=== PATIENT | male | born 1965 | race African-American/Black ===

== ENCOUNTER 2016-12-05 12:58 | Emergency (ER) | payer SELFPAY ==
[~2016-12-05] VITALS: Ht 180.3 cm; Wt 100.0 kg
[2016-12-05 12:59] VITALS: BP 144/82
[2016-12-05] MEDS ORDERED: LORAZEPAM 1MG TABLET PO ONE (13:30)
== END 2016-12-05 13:55 | disposition left against medical advice (07) ==
LOC: ER 13:06
DX: R44.0 Auditory hallucinations (principal)
CPT/HCPCS: 99283

== ENCOUNTER 2016-12-22 15:46 | Emergency (ER) | payer SELFPAY ==
[~2016-12-22] VITALS: Ht 167.6 cm; Wt 81.0 kg
[2016-12-22 18:50] VITALS: BP 131/74
== END 2016-12-22 19:00 | disposition home or self-care (01) ==
LOC: ER 16:41
DX: F31.9 Bipolar disorder, unspecified (principal)
CPT/HCPCS: 99283

== ENCOUNTER 2016-12-29 10:51 | Emergency (ER) | payer SELFPAY | END 2016-12-29 11:47 | disposition left against medical advice (07) | LOC: ER 10:52 | DX: Z53.21 Procedure and treatment not carried out due to patient leaving prior to being seen by health care provider (principal) ==

== ENCOUNTER 2019-05-03 16:00 | Emergency (ER) | payer MEDICAID | END 2019-05-03 17:10 | disposition left against medical advice (07) | LOC: ER 16:00 | DX: R68.89 Other general symptoms and signs (principal); Z53.21 Procedure and treatment not carried out due to patient leaving prior to being seen by health care provider ==

== ENCOUNTER 2023-03-20 02:22 | Emergency (ER) | payer MEDICAID, OTHER ==
[~2023-03-20] VITALS: Ht 182.9 cm; Wt 100.0 kg
[2023-03-20 02:25] VITALS: O2SAT 96
[2023-03-20] MEDS ORDERED: ZIPRASIDONE MESYLATE 20MG/VIAL IM ONE (02:45)
[2023-03-20 05:13] LABS: HEMATOCRIT. 40.1 % (42.0-52.0); HEMOGLOBIN. 13.1 g/dL (14.0-18.0); MEAN CORPUSCULAR HEMOGLOBIN 28.5 pg (28.0-32.0); MEAN CORPUSCULAR HGB CONC 32.5 g/dL (31.0-37.0); MEAN CORPUSCULAR VOLUME 87.6 fL (80.0-94.0); MEAN PLATELET VOLUME 8.5 fl (7.4-10.4); PLATELET 158 x1000/uL (130-400); RED BLOOD CELL COUNT 4.58 mill/uL (4.7-6.1); RED CELL DISTRIBUTION WIDTH 14.1 % (11.6-14.6); WHITE BLOOD COUNT 6.4 x1000/uL (4.5-11.0)
[2023-03-20 05:22] LABS: CHLORIDE 108 mEq/L (98-107); DIFFERENTIAL COMMENT 1; INDEX HEMOLYSI 1 (1-3); INDEX ICTERIC 1 (1-4); INDEX LIPEMIC 1 (1-3); POTASSIUM 3.8 mEq/L (3.5-5.1); SODIUM 139 mEq/L (136-145)
[2023-03-20 05:29] LABS: ACETAMINOPHEN <2 ug/mL ug/mL (10-30); ALANINE AMINOTRANSFERASE 65 IU/L (13-61); ALBUMIN 3.4 g/dL (3.4-5.0); ASPARTATE AMINOTRANSFERASE 90 IU/L (15-37); BILIRUBIN TOTAL 0.9 mg/dL (0.1-1.0); CALCIUM 8.6 mg/dL (8.5-10.1); CARBON DIOXIDE 28 mEq/L (21-32); CREATININE 1.4 mg/dL (0.6-1.3); ETHANOL BLOOD < 10 mg/dL (-10); GLUCOSE 94 mg/dL (70-105); PROTEIN TOTAL 7.3 g/dL (6.0-8.3); UREA NITROGEN BLOOD 23 mg/dL (7-21)
[2023-03-20 09:36] VITALS: BP 123/70; PULSE 85; RESP 16; TEMP 98.2
[2023-03-20 11:23] LABS: PLATELET ESTIMATE NORMAL
== END 2023-03-20 10:05 | disposition home or self-care (01) ==
LOC: ER 02:22
DX: R45.1 Restlessness and agitation (principal); F31.9 Bipolar disorder, unspecified; F20.9 Schizophrenia, unspecified
CPT/HCPCS: 80053; 80307; 80329; 80320; 85025; 36415; 96372; 99285; J3486; Z7610; G0480

== ENCOUNTER 2023-03-21 01:48 | Emergency (ER) | payer OTHER ==
[~2023-03-21] VITALS: Ht 177.8 cm; Wt 87.0 kg
[2023-03-21 01:53] VITALS: BP 120/86; PULSE 106; RESP 18; O2SAT 96
== END 2023-03-21 05:56 | disposition left against medical advice (07) ==
LOC: ER 01:48
DX: Z53.21 Procedure and treatment not carried out due to patient leaving prior to being seen by health care provider (principal)
CPT/HCPCS: 99281

== ENCOUNTER 2024-07-09 14:25 | Emergency (ER) | payer OTHER ==
[~2024-07-09] VITALS: Ht 182.9 cm; Wt 68.0 kg
[~2024-07-09 14:25] MED LIST: IBUP-2028 MT
[2024-07-09 14:28] VITALS: O2SAT 96
[2024-07-09 15:46] LABS: BASOPHILS % 0.1 % (0.0-2.0); EOSINOPHILS % 0.1 % (0.0-5.0); HEMATOCRIT. 27.6 % (42.0-52.0); LYMPHOCYTES % 9.8 % (20.0-50.0); MEAN CORPUSCULAR HEMOGLOBIN 27.2 pg (28.0-32.0); MEAN CORPUSCULAR HGB CONC 32.6 g/dL (31.0-37.0); MEAN CORPUSCULAR VOLUME 83.5 fL (80.0-94.0); MEAN PLATELET VOLUME 7.6 fl (7.4-10.4); MONOCYTES % 14.6 % (2.0-8.0); NEUTROPHILS % 75.4 % (40.0-76.0); PLATELET 277 x1000/uL (130-400); RED BLOOD CELL COUNT 3.31 mill/uL (4.7-6.1); RED CELL DISTRIBUTION WIDTH 13.8 % (11.6-14.6); WHITE BLOOD COUNT 7.1 x1000/uL (4.5-11.0)
[2024-07-09] MEDS: SODIUM CHLORIDE 0.9% (SEPSIS BOLUS) IV ONE (15:46)
[2024-07-09] MEDS: PIPERACILLIN/TAZO 3.375G/50ML 50 ML IV ONE (15:47)
[2024-07-09] MEDS: ACETAMINOPHEN 325MG TABLET PO STA (15:47)
[2024-07-09 15:56] LABS: CHLORIDE 98 mEq/L (98-107); POTASSIUM 4.4 mEq/L (3.5-5.1)
[2024-07-09 15:57] LABS: CARBON DIOXIDE 25 mEq/L (21-32); SODIUM 130 mEq/L (136-145)
[2024-07-09 15:58] LABS: CALCIUM 8.9 mg/dL (8.7-10.4)
[2024-07-09 16:02] LABS: CREATININE 1.1 mg/dL (0.6-1.3)
[2024-07-09 16:03] LABS: GLUCOSE 100 mg/dL (70-105); UREA NITROGEN BLOOD 14 mg/dL (9-23)
[2024-07-09 16:04] LABS: ALANINE AMINOTRANSFERASE 66 IU/L (10-49); ALBUMIN 3.7 g/dL (3.2-4.8); ASPARTATE AMINOTRANSFERASE 73 IU/L (<34); CREATINE KINASE 61 IU/L (46-171)
[2024-07-09 16:05] LABS: BILIRUBIN DIRECT 0.2 mg/dL (<=3.0); BILIRUBIN TOTAL 0.5 mg/dL (0.1-1.0); PROTEIN TOTAL 7.1 g/dL (6.0-8.3)
[2024-07-09 16:07] LABS: ETHANOL BLOOD < 10 mg/dL (<10); TROPONIN I HIGH SENSITIVITY < 4 ng/L (3.0-53)
[2024-07-09] MEDS: IBUPROFEN 800MG TABLET PO ONE (16:21)
[2024-07-09 16:45] VITALS: TEMP 38.78088
[2024-07-09 16:47] VITALS: TEMP 102.1
[2024-07-09 17:08] LABS: CLARITY URINE CLEAR (CLEAR); COLOR URINE YELLOW (YELLOW); GLUCOSE URINE NEGATIVE (NEGATIVE); KETONES URINE NEGATIVE (NEGATIVE); LEUKOCYTE ESTERASE URINE NEGATIVE (NEGATIVE); NITRITE URINE NEGATIVE (NEGATIVE); OCCULT BLOOD URINE NEGATIVE (NEGATIVE); PROTEIN URINE 1+ (NEGATIVE); SPECIFIC GRAVITY URINE 1.015 (1.005-1.030)
[2024-07-09 17:29] LABS: BACTERIA URINE 1+; RBC URINE NONE SEEN /hpf (0-2); SQUAMOUS EPITHELIAL CELL URINE RARE /lpf (RARE/1+); WBC URINE 0-2 /hpf (0-2)
[2024-07-09 21:02] LABS: TROPONIN I HIGH SENSITIVITY < 4 ng/L (3.0-53)
[2024-07-09 21:30] VITALS: BP 105/68; PULSE 91; RESP 18; O2SAT 100
[2024-07-13] MEDS ORDERED: NAPR-1176 MT (03:22)
== END 2024-07-09 21:32 | disposition left against medical advice (07) ==
LOC: ER 14:25 → EDBEDREQTM 16:23 → EDBEDREQ 16:23 → ER 21:32
DX: A41.9 Sepsis, unspecified organism (principal); E87.1 Hypo-osmolality and hyponatremia; K40.90 Unilateral inguinal hernia, without obstruction or gangrene, not specified as recurrent; Z20.822 Contact with and (suspected) exposure to COVID-19
CPT/HCPCS: 80076; 80048; 81003; 80320; 82550; 83880; 83605; 83690; 85025; 85610; 87040; 87086; 84484; 87804 ×2; 36415; 84145; 71045; 70450; 74176; 93005; 96365; 99291; 87426; J2543; J7030; Z7610 ×2; G0480

== ENCOUNTER 2024-07-11 05:17 | Emergency (ER) | payer OTHER ==
[~2024-07-11] VITALS: Ht 175.3 cm; Wt 64.0 kg
[2024-07-11 05:34] VITALS: BP 115/67; PULSE 72; RESP 18; TEMP 98.4; O2SAT 100; O2SAT 95
[2024-07-13] MEDS ORDERED: NAPR-1176 MT (03:22)
== END 2024-07-11 08:07 | disposition left against medical advice (07) ==
LOC: ER 05:22
DX: R05.9 Cough, unspecified (principal); Z53.21 Procedure and treatment not carried out due to patient leaving prior to being seen by health care provider

== ENCOUNTER 2024-07-13 08:45 | Emergency (ER) | payer OTHER ==
[~2024-07-13] VITALS: Ht 177.8 cm; Wt 70.0 kg
[~2024-07-13 08:45] MED LIST changes: +NAPR-1176 MT
[2024-07-13 08:48] VITALS: BP 140/80; PULSE 88; RESP 16; O2SAT 98
== END 2024-07-13 08:58 | disposition home or self-care (01) ==
LOC: ER 08:52
DX: M79.643 Pain in unspecified hand (principal); F31.9 Bipolar disorder, unspecified
CPT/HCPCS: 99283